=== PATIENT | male | born 1990 | race Caucasian/White ===

== ENCOUNTER 2019-08-25 17:38 | Emergency (ER) | payer SELFPAY ==
[2019-08-25 18:30] VITALS: BP 136/98; PULSE 114; RESP 18; TEMP 36.8; O2SAT 100
--- NOTE | 2019-08-25 18:54 | ED.GENADULT ---
HPI - General Adult General Chief complaint: Unspecified Stated complaint: BAD TEETH Time Seen by Provider: 08/25/19 18:39 Source: patient Mode of arrival: ambulatory Limitations: no limitations History of Present Illness HPI narrative: This is a 29 year old male that presents to the ER for left lower molar pain since this morning. Reports he has been told by his dentist that he needs this tooth pulled. Reports he noted some swelling around the tooth and jaw today. Denies shortness of breath, or trouble swallowing. Related Data Allergies Allergy/AdvReac Type Severity Reaction Status Date / Time No Known Allergies Allergy Unknown Verified 01/04/19 19:00 Review of Systems Review of Systems: Narrative: CONSTITUTIONAL: Denies fever ENT: Reports dentalgia RESPIRATORY: Denies dyspnea. GASTROINTESTINAL: Denies vomiting All systems reviewed & are unremarkable except as noted in HPI and below PMFSH Past Medical History Medical History (Updated 08/25/19 @ 19:42 by Tiesha Swift PA-C) History of depression Social History Social History (Updated 08/25/19 @ 19:00 by Tiesha Swift PA-C) Smoking status: Current every day smoker Exam Narrative: Exam Narrative: GENERAL: Well-appearing, well-nourished, and in no acute distress. HEAD: Normocephalic, atraumatic. EYES: EOMI. ENT: Oropharynx without tonsillar hypertrophy exudate or other lesions. Poor dentition. Tooth #18 tender to palpation with mild surrounding edema and erythema. No trismus. Floor of mouth is soft NECK: Supple. No adenopathy or masses. CHEST: Clear to auscultation. No respiratory distress. No wheezes rales or rhonchi HEART: Regular rate and rhythm. No murmur heard. Normal peripheral pulses. EXTREMITIES: Normal range of motion. No edema. SKIN: Warm, dry, no rash. NEURO: No focal deficits. Alert and oriented x3. PSYCH: Normal mood and affect Course Vital Signs Vital signs: Vital Signs Temperature 98.3 F 08/25/19 18:30 Pulse Rate 114 H 08/25/19 18:30 Respiratory Rate 18 08/25/19 18:30 Blood Pressure 136/98 H 08/25/19 18:30 Pulse Oximetry 100 08/25/19 18:30 Temperature 98.3 F 08/25/19 18:30 Pulse Rate 114 H 08/25/19 18:30 Respiratory Rate 18 08/25/19 18:30 Blood Pressure 136/98 H 08/25/19 18:30 Pulse Oximetry 100 08/25/19 18:30 Procedures Abscess I/D other: Date of Incision: 08/25/19 Time of Incision: 19:39 Side (if applicable): left Local Anesthetic: other anesthetic (Hurricaine) Technique: incised with #11 blade Irrigation: No Packing used?: none I&D Results: Blood Complications: other (no complications) Medical Decision Making MDM Narrative Medical decision making narrative: Patient presents to the emergency department for toothache since this morning. Patient is afebrile and nontoxic-appearing. Mild edema and erythema around the tooth. No trismus. Floor mouth is soft. I did attempt at I&D to ensure there was no fluid collection, no pus expressed. Patient will be started on an oral antibiotic. He is to follow-up with his dentist. He was given warnings to return to the ER Vital Signs Vital Signs: Vital Signs Temperature 98.3 F 08/25/19 18:30 Pulse Rate 114 H 08/25/19 18:30 Respiratory Rate 18 08/25/19 18:30 Blood Pressure 136/98 H 08/25/19 18:30 Pulse Oximetry 100 08/25/19 18:30 Temperature 98.3 F 08/25/19 18:30 Pulse Rate 114 H 08/25/19 18:30 Respiratory Rate 18 08/25/19 18:30 Blood Pressure 136/98 H 08/25/19 18:30 Pulse Oximetry 100 08/25/19 18:30 Critical Care Time Critical Care Time Critical Care Time: No Discharge Plan Discharge Clinical Impression: Tooth ache Patient Disposition: Home, Self-Care Condition: Stable Instructions: Antibiotic Form, Toothache (ED) Additional Instructions: Return to the Emergency Department if you experience fever >101, increasing swelling and redness of your
[2019-08-25] MEDS: KETOROLAC (*BKC) 60 MG/2 ML VIAL IM (19:55)
== END 2019-08-25 20:10 | disposition home or self-care (01) ==
PROVIDERS: Emergency Provider Emergency Medicine; PCP Emergency Medicine
DX: K08.89 Other specified disorders of teeth and supporting structures (principal); F17.200 Nicotine dependence, unspecified, uncomplicated
CPT/HCPCS: 41800; 96372; 99283; A9270; J1885

== ENCOUNTER 2020-04-20 21:27 | Emergency (ER) | payer MEDICAID, SELFPAY ==
[2020-04-20 21:27] VITALS: BP 127/84; PULSE 88; RESP 20; TEMP 36.7; O2SAT 100
--- NOTE | 2020-04-20 21:48 | ED.WOUNDLAC ---
HPI - Wound/Laceration General Chief Complaint: Wound/Laceration Stated Complaint: need sutures Time Seen by Provider: 04/20/20 21:47 Source: patient Mode of arrival: ambulatory Limitations: no limitations History of Present Illness HPI narrative: Patient is a previously healthy 30-year-old gentleman who presents for evaluation of right arm laceration. Patient states that he was washing windows, he had some tools including box cutting knife set up on a windowsill when he went to swat at a wasp and hit the tools with his right arm. He believes a boxing inspector cut him in his right arm. He has a laceration on his right elbow. He denies any severe pain, reports minimal active bleeding, denies numbness. No bony pain. No pain in the hand. Patient states he is up-to-date on her tetanus. He is right-hand dominant. Related Data Home Medications Medication Instructions Recorded Confirmed No Home Medications 04/20/20 04/20/20 Allergies Allergy/AdvReac Type Severity Reaction Status Date / Time No Known Allergies Allergy Unknown Verified 04/20/20 21:31 Review of Systems Review of Systems: Narrative: CONSTITUTIONAL: Denies fever CARDIOVASCULAR: Denies chest pain RESPIRATORY: Denies cough GASTROINTESTINAL: Denies abdominal pain SKIN: Reports right arm laceration NEUROLOGIC: Denies numbness PMFSH Past Medical History Medical History History of depression Social History Social History Smoking status: Current every day smoker Gender identity (if verbalized by the patient): Male Exam Narrative: Exam Narrative: GENERAL: Awake, alert, conversant HEAD: Normocephalic, atraumatic. EYES: PERRLA and EOMI. ENT: Nares clear, no rhinorrhea or epistaxis. Mucous membranes moist. NECK: Supple. CHEST: No respiratory distress, breathing even and non labored HEART: Regular rate, sinus rhythm ABDOMEN:Non distended, non tender EXTREMITIES: Normal range of motion. No edema. Radial pulses 2+ bilaterally. Intact sensation median, ulnar, radial nerve distribution right hand. SKIN: Warm, dry, 2 cm flap laceration to the right proximal forearm, no deep tissue involvement, no foreign body. NEURO:No focal deficits. Alert and oriented x3 Course Vital Signs Vital signs: Vital Signs Temperature 36.7 C 04/20/20 21:27 Pulse Rate 88 04/20/20 21:27 Respiratory Rate 20 04/20/20 21:27 Blood Pressure 127/84 04/20/20 21:27 Pulse Oximetry 100 04/20/20 21:27 Temperature 36.7 C 04/20/20 21:27 Pulse Rate 88 04/20/20 21:27 Respiratory Rate 20 04/20/20 21:27 Blood Pressure 127/84 04/20/20 21:27 Pulse Oximetry 100 04/20/20 21:27 Procedures Laceration Laceration 1: Date: 04/20/20 Time: 22:12 Site: upper extremity Side (If applicable): right Size (cm): 2 Description: flap Depth: involves muscle layer Local Anesthetic: lidocaine 1% Amount of anesthesia used (mL): 5 Pre-repair: wound explored and irrigated ====== Skin Level ====== Skin layer closed with: prolene Size (cm): 5-0 Number of sutures: 6 Technique: simple, interrupted ====== Subcutaneous Layer ====== ====== Muscle Layer ====== ====== Tendon Layer ====== MDM - Wound/Laceration MDM Narrative Medical decision making narrative: Patient with right forearm laceration, does not appear to have any bony involvement. Patient is neurovascularly intact. He is up-to-date on his tetanus. No numbness or paralysis. Patient has full strength in the right upper extremity. Wound was irrigated, repaired as described in procedure note. Patient given wound discharge instructions and discharged home in stable condition. Differential Diagnosis Differential diagnosis: Likely laceration Discharge Plan Discharge Clinical Impression: Laceration
--- NOTE | 2020-04-20 22:01 | PC.NURSE ---
PT STATES THAT HIS TDAP IS PROBABLY UP TO DATE AND DOES NOT WANT ONE DURING THIS ED VISIT.
== END 2020-04-20 22:15 | disposition home or self-care (01) ==
PROVIDERS: Emergency Provider Emergency Medicine; PCP Emergency Medicine
DX: S51.011A Laceration without foreign body of right elbow, initial encounter (principal); W27.0XXA Contact with workbench tool, initial encounter; F17.200 Nicotine dependence, unspecified, uncomplicated
CPT/HCPCS: 12001; 99282

== ENCOUNTER 2023-11-11 21:54 | Emergency (ER) | payer OTHER, SELFPAY ==
[2023-11-11 21:52] VITALS: BP 158/112; PULSE 125; RESP 18; TEMP 36.8; O2SAT 100
--- NOTE | 2023-11-11 22:28 | PC.NURSE ---
Pt seen ambulating in the hallway. Pt stopped this RN and said he has kids at home he needs to see. Does not want to wait to be seen by EDP. Pt ambulatory with steady gait. Has family member with them. Pt ambulates out of department at this time.
== END 2023-11-11 22:28 | disposition left against medical advice (07) ==
LOC: ANHED 22:39
PROVIDERS: PCP Emergency Medicine
DX: S01.111A Laceration without foreign body of right eyelid and periocular area, initial encounter (principal); Y04.2XXA Assault by strike against or bumped into by another person, initial encounter
CPT/HCPCS: 99199